=== PATIENT | male | born 1945 | race Two or more races ===

== ENCOUNTER 2024-10-01 10:30 | Outpatient (OUT) | payer OTHER, SELFPAY ==
--- NOTE | 2024-10-01 10:46 | XR_ITS ---
The [address] [address] Patient Name: DEXTER MANDEL MRN: [id number] date: 1945 Sex: M Assigned Patient Location: [facility] Current Patient Location: [facility] Accession/Order Number: [id number] Exam Date: 10/01/2024 11:26 Report Date: 10/01/2024 16:39 At the request of: JIN FERRARA DO Procedure: XR lumbar spine 2-3V THORACIC SPINE - - 2 views, lumbar spine 3 views. CLINICAL HISTORY: Degenerative Disc Disease COMPARISON: None FINDINGS: Thoracic spine: Vertebral body heights appear maintained. Scattered endplate degenerative changes with disc height loss. Pedicles appear intact. Left atrial appendage occlusion device is noted. Lumbar spine: Vertebral body heights appear maintained. Diffuse moderate to severe degenerative disc disease worst at L4-L5 with associated facet joint degenerative changes as well as 5 mm of anterolisthesis of L4 on L5. SI joints demonstrate degenerative change. XR/XR lumbar spine 2-3V IMPRESSION: DEGENERATIVE CHANGES INVOLVING THE THORACOLUMBAR SPINE DESCRIBED ABOVE. NO ACUTE BONY PROCESS. Impression dictated by: Carlos Guadalupe Jr., D.O. 10/01/2024 4:39 PM Dictation Location: [place] [address] Electronically authenticated by: [id number] Y Date: 10/01/2024 16:39
--- NOTE | 2024-10-01 10:46 | XR_ITS ---
The [address] [address] Patient Name: DEXTER MANDEL MRN: [id number] date: 1945 Sex: M Assigned Patient Location: [facility] Current Patient Location: [facility] Accession/Order Number: [id number] Exam Date: 10/01/2024 11:26 Report Date: 10/01/2024 16:39 At the request of: JIN FERRARA DO Procedure: XR lumbar spine 2-3V THORACIC SPINE - - 2 views, lumbar spine 3 views. CLINICAL HISTORY: Degenerative Disc Disease COMPARISON: None FINDINGS: Thoracic spine: Vertebral body heights appear maintained. Scattered endplate degenerative changes with disc height loss. Pedicles appear intact. Left atrial appendage occlusion device is noted. Lumbar spine: Vertebral body heights appear maintained. Diffuse moderate to severe degenerative disc disease worst at L4-L5 with associated facet joint degenerative changes as well as 5 mm of anterolisthesis of L4 on L5. SI joints demonstrate degenerative change. XR/XR thoracic spine 2V IMPRESSION: DEGENERATIVE CHANGES INVOLVING THE THORACOLUMBAR SPINE DESCRIBED ABOVE. NO ACUTE BONY PROCESS. Impression dictated by: Carlos Guadalupe Jr., D.O. 10/01/2024 4:39 PM Dictation Location: [place] [address] Electronically authenticated by: [id number] Y Date: 10/01/2024 16:39
== END 2024-10-01 10:31 | disposition home or self-care (01) ==
LOC: RAD 10:39
PROVIDERS: Visit Provider Chiropractor
DX: M51.369 Other intervertebral disc degeneration, lumbar region without mention of lumbar back pain or lower extremity pain (principal); M51.34 Other intervertebral disc degeneration, thoracic region
CPT/HCPCS: 72070; 72100